=== PATIENT | male | born 2000 | race Caucasian/White ===

== ENCOUNTER 2019-03-18 20:21 | Emergency (ER) | payer SELFPAY ==
[2019-03-18] MEDS ORDERED: TETRACAINE 0.5% OPHTH SOLN 2 ML BOTTLE ONE (20:37)
[2019-03-18] MEDS ORDERED: FLUORESCEIN NA 1 EA STRIP ONE (20:37)
[2019-03-18] MEDS ORDERED: TOBRAMYCIN/DEXAMETHASONE OPHTH. OINTMENT 1 TUBE OS STA (20:48)
[2019-03-18 20:50] VITALS: BP 120/49; PULSE 67; TEMP 97.4; BMI 22.8
--- NOTE | 2019-03-18 20:50 | PDOC ---
Documentation entered by Lorelei Muñoz SCRIBE, acting as scribe for Keron Tapia MD. Keron Tapia MD: This documentation has been prepared by the philibe, Lorelei Muñoz SCRIBE, under my direction and personally reviewed by me in its entirety. I confirm that the documentation accurately reflects all work , treatment, procedures, and medical decision making performed by me. History of Present Illness - General Chief Complaint: Eye Problem Stated Complaint: L EYE PAIN Time Seen by Provider: 03/18/19 20:23 History Source: Patient Exam Limitations: No Limitations - History of Present Illness Initial Comments: 03/18/19 20:53 The patient is a 18-year-old male presents to the emergency department with left eye irritation. The patient reports he was doing some backyard work yesterday when he felt like maybe some sand or dirt got into the eye. The patient reports he flushed the eye with water, used eye drop, and he used an OTC eye cleaning solution, without relief. Denies crusting of the eyes, excessive tearing. Denies the use of contact lens. Denies blurry vision, diplopia. Denies a headache or fever. PAST MEDICAL HISTORY: no significant history PAST SURGICAL HISTORY: no significant history FAMILY HISTORY: no pertinent history SOCIAL HISTORY: Pt lives with family and is employed. MEDICATIONS: reviewed ALLERGIES: As per nursing notes ROS: General: No fevers or chills, no weakness, no weight loss HEENT: +left eye irritation. No change in vision. No sore throat,. No ear pain CardioVascular: No chest pain or shortness of breath Respiratory:No cough, or wheezing. Gastrointestinal: no nausea, vomiting, diarrhea or constipation, No rectal bleeding Genitourinary: No dysuria, hematuria, or frequency Musculoskeletal: No joint or muscle pain or swelling Neurologic: No headache, vertigo, dizziness or loss of consciousness Psychiatric: nor depression Skin: No rashes or easy bruising Endocrine: no increased thirst or abnormal weight change Allergic: no skin or latex allergy All other systems reviewed and normal PE: GENERAL: The patient is awake, alert, and fully oriented, in no acute distress. HEAD: Normal with no signs of trauma. EYES: Left eye: conjunctiva injected, eyelid everted: no foreign body under the eyelid, fluorescein staining: no increased uptake of the fluorescein, thats consistent with abrasion. Microscopic exam: anterior chamber quiet and deep, no foreign body visible. Pupils equal, round and reactive to light, extraocular movements intact. EXTREMITIES: Normal range of motion, no edema. NEUROLOGICAL: Normal speech, normal gait. PSYCH: Normal mood, normal affect. SKIN: Warm, Dry, normal turgor, no rashes or lesions noted. 03/18/19 21:01 Past History - Past Medical History Allergies/Adverse Reactions: Allergies Allergy/AdvReac Type Severity Reaction Status Date / Time No Known Allergies Allergy Unverified 03/18/19 20:41 Home Medications: Ambulatory Orders NK [No Known Home Medication] 03/18/19 *Physical Exam - Vital Signs Last Vital Signs Temp Pulse Resp BP Pulse Ox 97.4 F L 67 14 120/49 L 100 03/18/19 20:35 03/18/19 20:35 03/18/19 20:35 03/18/19 20:35 03/18/19 20:35 *DC/Admit/Observation/Transfer Diagnosis at time of Disposition: Conjunctivitis Qualifiers: Conjunctivitis type: acute Acute conjunctivitis type: unspecified Laterality: left Qualified Code(s): H10.32 - Unspecified acute conjunctivitis, left eye - Discharge Dispostion Disposition: HOME Condition at time of disposition: Good Decision to Admit order: No - Referrals Referrals: Aj Rowe MD [Primary Care Provider] - - Patient Instructions Additional Instructions: Place one drop of the antibiotic ointment in your left eye 4 times a day for 7 days. Return to the emergency department immediately with ANY new, persistent or worsening symptoms. Continue any medications as previously prescribed by your physician. You should follow up with your eye doctor if not better in 2 days regarding today's emergency department visit. . Please make sure your doctor reviews the results of your emergency evaluation. Thank you for coming to the Emergency Department today for your care. It was a pleasure to see you today. Please note that your evaluation is INCOMPLETE until you follow-up with your doctor. - Post Discharge Activity
[2019-03-18] MEDS ORDERED: TOBRAMYCIN 0.3% OPHTH SOLN 5 ML BOTTLE ONE (21:02)
[2019-03-18] MEDS ORDERED: TOBRAMYCIN/DEXAMETHASONE OPHTH. OINTMENT 1 TUBE ONE (21:03)
== END 2019-03-18 21:08 | disposition home or self-care (01) ==
LOC: FER 20:21
DX: H10.32 Unspecified acute conjunctivitis, left eye (principal)
CPT/HCPCS: 99283-25